=== PATIENT | female | born 1955 | race Hispanic/Latino ===

== ENCOUNTER 2017-06-20 06:18 | Day surgery (SDC) | payer MEDICAID ==
[~2017-06-20] VITALS: Ht 152.4 cm; Wt 60.8 kg
[2017-06-20] MEDS ORDERED: SODIUM CHLORIDE 0.9% 1000ML 1,000 ML IV ONE (06:24)
[2017-06-20 06:47] VITALS: BP 152/72
[2017-06-20] MEDS ORDERED: CALC1TAB3 PO (06:56)
[2017-06-20] MEDS ORDERED: CALC1TAB2 PO (06:56)
[2017-06-20] MEDS ORDERED: LUBI24CA2 PO (06:56)
[2017-06-20] MEDS ORDERED: ERGO500014 PO (06:56)
[2017-06-20] MEDS ORDERED: OMEP40CA37 PO (06:56)
[2017-06-20 07:59] VITALS: BP 126/66
[2017-06-20 08:05] VITALS: BP 127/66
[2017-06-20 08:10] VITALS: BP 133/68
[2017-06-20 08:15] VITALS: BP 134/88
== END 2017-06-20 08:33 | disposition home or self-care (01) ==
LOC: DAH 06:18
PROVIDERS: ATTEND Internal Medicine
DX: K29.50 Unspecified chronic gastritis without bleeding (principal); K31.7 Polyp of stomach and duodenum; K21.9 Gastro-esophageal reflux disease without esophagitis; K44.9 Diaphragmatic hernia without obstruction or gangrene; G30.9 Alzheimer's disease, unspecified; F02.80 Dementia in other diseases classified elsewhere, unspecified severity, without behavioral disturbance, psychotic disturbance, mood disturbance, and anxiety; F32.9 Major depressive disorder, single episode, unspecified; E78.5 Hyperlipidemia, unspecified; Z98.51 Tubal ligation status; Z83.3 Family history of diabetes mellitus; Z82.49 Family history of ischemic heart disease and other diseases of the circulatory system
CPT/HCPCS: 43239; 88305; 88313; 88342; A4606; J7030

== ENCOUNTER 2018-07-02 05:30 | Day surgery (SDC) | payer MEDICAID ==
[2018-07-01 10:51] VITALS: BP 126/56
[2018-07-01 10:56] LABS: BASOPHILS % (AUTO) 0.5 % (0.0-5.0); EOSINOPHILS % (AUTO) 0.5 % (0.0-8.0); HEMATOCRIT 41.7 % (36-48); LYMPHOCYTES % (AUTO) 31.5 % (21.0-51.0); MEAN CORPUSCULAR HEMOGLOBIN 30.5 pg (27.0-33.0); MEAN CORPUSCULAR HGB CONC 34.1 g/dL (32.0-36.0); MEAN CORPUSCULAR VOLUME 89.5 fL (79-99); NEUTROPHILS % (AUTO) 62.5 % (40.0-77.0); NUCLEATED RED BLOOD CELLS 0.1 % (0.0-0.19); PLATELET COUNT (AUTO) 301 K/uL (130-400); RED BLOOD CELL COUNT(AUTO) 4.66 MIL/uL (4.00-5.50); RED CELL DISTRIBUTION WIDTH 13.5 % (11.0-15.5); WHITE BLOOD COUNT (AUTO) 5.2 K/uL (4.8-10.8)
[~2018-07-02] VITALS: Ht 154.9 cm; Wt 60.3 kg
[2018-07-02] VITALS (16 sets, daily range): BP systolic 94–145; BP diastolic 39–78
[~2018-07-02 05:30] MED LIST: ERGO500014 PO; LINA145C PO; LUBI24CA2 PO
[2018-07-02] MEDS: LACTATED RINGERS 1000ML 1,000 ML IV SCH ×2 (06:40→08:20)
[2018-07-02] MEDS ORDERED: FENTANYL CITRATE PF 50 MCG/1 ML 2ML VIAL ONE (06:48)
[2018-07-02] MEDS ORDERED: PROPOFOL 10 MG/ML 20ML VIAL IV ONE (06:48)
[2018-07-02] MEDS ORDERED: LIDOCAINE PF 2% 5ML ABBOJECT ONE (06:48)
[2018-07-02] MEDS ORDERED: MIDAZOLAM HCL 1 MG/ML 2ML VIAL ONE (07:51)
== END 2018-07-02 10:35 | disposition home or self-care (01) ==
LOC: DAH 05:30
PROVIDERS: ATTEND Obstetrics & Gynecology
DX: N89.8 Other specified noninflammatory disorders of vagina (principal); E78.00 Pure hypercholesterolemia, unspecified; M06.9 Rheumatoid arthritis, unspecified; G30.9 Alzheimer's disease, unspecified; F02.80 Dementia in other diseases classified elsewhere, unspecified severity, without behavioral disturbance, psychotic disturbance, mood disturbance, and anxiety; Z90.710 Acquired absence of both cervix and uterus; Z83.3 Family history of diabetes mellitus; Z82.49 Family history of ischemic heart disease and other diseases of the circulatory system; Z98.890 Other specified postprocedural states; M19.90 Unspecified osteoarthritis, unspecified site
CPT/HCPCS: 36415; 57135; 85025; 86850; 86900; 86901; 88305; A4315; A4930; J2001; J2250; J2704; J3010; J7120 ×2

== ENCOUNTER → 2018-09-17 | Outpatient (CLI) | payer MEDICAID ==
[~2018-09-17] VITALS: Ht 152.4 cm; Wt 59.0 kg
[~2018-09-17] MED LIST changes: +REGADENOSON 0.4 MG/5 ML PF SYG IVP SCH
== END | disposition home or self-care (01) ==
LOC: SHCH 07:44
PROVIDERS: ATTEND Internal Medicine Cardiovascular Disease
DX: R07.9 Chest pain, unspecified (principal)
CPT/HCPCS: 78452; 93017; 96374; A9500 ×2; J2785

== ENCOUNTER → 2018-11-14 | Outpatient (CLI) | payer MEDICAID ==
[~2018-11-14] MED LIST changes: -REGADENOSON 0.4 MG/5 ML PF SYG IVP SCH
== END | disposition home or self-care (01) ==
LOC: RAH 14:14
PROVIDERS: ATTEND Family Medicine
DX: R42 Dizziness and giddiness (principal); G44.89 Other headache syndrome
CPT/HCPCS: 70551

== ENCOUNTER → 2022-11-02 | Outpatient (CLI) | payer OTHER | END | disposition home or self-care (01) | LOC: OIH 09:43 | PROVIDERS: ATTEND Internal Medicine Cardiovascular Disease | DX: Z13.6 Encounter for screening for cardiovascular disorders (principal); I25.10 Atherosclerotic heart disease of native coronary artery without angina pectoris | CPT/HCPCS: 75571 ==

== ENCOUNTER 2022-12-22 10:35 | Emergency (ER) | payer OTHER, MEDICARE ==
[~2022-12-22] VITALS: Ht 152.4 cm; Wt 52.2 kg
[2022-12-22 11:40] LABS: BASOPHILS # (AUTO) 0.03 K/uL (0.00-0.20); BASOPHILS % (AUTO) 0.7 % (0.0-5.0); EOSINOPHILS # (AUTO) 0.08 K/uL (0.00-0.70); EOSINOPHILS % (AUTO) 1.7 % (0.0-8.0); HEMATOCRIT 40.9 % (36-48); IMMATURE GRANULOCYTE ABSOLUTE 0.01 K/uL (0-1); LYMPHOCYTES # (AUTO) 2.1 K/uL (1.0-4.8); LYMPHOCYTES % (AUTO) 45.6 % (21.0-51.0); MEAN CORPUSCULAR HEMOGLOBIN 29.1 pg (27.0-33.0); MEAN CORPUSCULAR HGB CONC 31.5 g/dL (32.0-36.0); MEAN CORPUSCULAR VOLUME 92.3 fL (79-99); MONOCYTES # (AUTO) 0.3 K/uL (0.1-1.0); MONOCYTES % (AUTO) 7.4 % (3.0-13.0); NEUTROPHILS % (AUTO) 44.4 % (40.0-77.0); PLATELET COUNT (AUTO) 294 K/uL (130-400); RED BLOOD CELL COUNT(AUTO) 4.43 MIL/uL (4.00-5.50); RED CELL DISTRIBUTION WIDTH 13.3 % (11.0-15.5); WHITE BLOOD COUNT (AUTO) 4.6 K/uL (4.8-10.8)
[2022-12-22 11:56] LABS: ALBUMIN 3.7 g/dL (3.5-5.0); BILIRUBIN,TOTAL 0.4 mg/dL (0.2-1.0); CREATININE 0.6 mg/dL (0.5-1.5); TOTAL PROTEIN, SERUM 7.2 g/dL (6.0-8.3)
[2022-12-22 12:29] LABS: APPEARANCE,URINE CLEAR (CLEAR); BILIRUBIN,URINE NEGATIVE (NEGATIVE); COLOR,URINE LIGHT-YELLOW (YELLOW); GLUCOSE, URINE (UA) NEGATIVE (NEGATIVE); KETONES,URINE NEGATIVE (NEGATIVE); LEUKOCYTE ESTERASE ,URINE NEGATIVE Leu/uL (NEGATIVE); NITRATE,URINE NEGATIVE (NEGATIVE); OCCULT BLOOD,URINE NEGATIVE (NEGATIVE); PH,URINE 5.5 (5.0-8.0); PROTEIN,URINE NEGATIVE (NEGATIVE); UROBILINOGEN,URINE 0.2 mg/dL (0.2-1.0)
[2022-12-22 12:30] LABS: ADD UA MICROSCOPIC NO
[2022-12-22 15:14] VITALS: BP 138/64; PULSE 72; RESP 16; O2SAT 100
== END 2022-12-22 15:15 | disposition home or self-care (01) ==
LOC: EDH 10:35
DX: R07.89 Other chest pain (principal); M54.50 Low back pain, unspecified; R42 Dizziness and giddiness; R51.9 Headache, unspecified; E78.00 Pure hypercholesterolemia, unspecified
CPT/HCPCS: 36415; 71045; 80053; 81003; 84484; 85025; 93005

== ENCOUNTER → 2023-08-01 | Outpatient (CLI) | payer OTHER, MEDICARE | END | disposition home or self-care (01) | LOC: SHCH 08:00 | PROVIDERS: ATTEND Internal Medicine Cardiovascular Disease | DX: I87.1 Compression of vein (principal); I87.2 Venous insufficiency (chronic) (peripheral); I73.9 Peripheral vascular disease, unspecified | CPT/HCPCS: 93925; 93970 ==

== ENCOUNTER → 2024-04-29 | Outpatient (CLI) | payer MEDICARE ==
[2024-04-29 16:51] LABS: BASOPHILS # (AUTO) 0.03 K/uL (0.00-0.20); BASOPHILS % (AUTO) 0.6 % (0.0-5.0); EOSINOPHILS # (AUTO) 0.05 K/uL (0.00-0.70); HEMATOCRIT 40.6 % (36-48); IMMATURE GRANULOCYTE ABSOLUTE 0.01 K/uL (0-1); LYMPHOCYTES # (AUTO) 1.9 K/uL (1.0-4.8); LYMPHOCYTES % (AUTO) 38.6 % (21.0-51.0); MEAN CORPUSCULAR HEMOGLOBIN 29.6 pg (27.0-33.0); MEAN CORPUSCULAR VOLUME 92.5 fL (79-99); MONOCYTES # (AUTO) 0.4 K/uL (0.1-1.0); NEUTROPHILS # (AUTO) 2.5 K/uL (1.8-7.7); NEUTROPHILS % (AUTO) 51.6 % (40.0-77.0); PLATELET COUNT (AUTO) 297 K/uL (130-400); RED BLOOD CELL COUNT(AUTO) 4.39 MIL/uL (4.00-5.50); RED CELL DISTRIBUTION WIDTH 13.1 % (11.0-15.5); WHITE BLOOD COUNT (AUTO) 4.9 K/uL (4.8-10.8)
[2024-04-29 17:11] LABS: CREATININE 0.5 mg/dL (0.5-1.0); POTASSIUM 4.3 mmol/L (3.5-5.1)
== END | disposition home or self-care (01) ==
LOC: LAB 13:02
PROVIDERS: ATTEND Internal Medicine Cardiovascular Disease
DX: R50.9 Fever, unspecified (principal)
CPT/HCPCS: 36415; 80048; 85025

== ENCOUNTER 2024-08-08 09:13 | Emergency (ER) | payer MEDICARE ==
[~2024-08-08] VITALS: Ht 152.4 cm; Wt 47.6 kg
[~2024-08-08 09:13] MED LIST changes: -LUBI24CA2 PO; +LUBI24CA40 PO
--- NOTE | 2024-08-08 09:41 | ERN ---
General Chief Complaint: Insect Bite Stated Complaint: INSECT BITE Time Seen by MD: 09:15 History of Present Illness Initial Comments 69-year-old female, history of high cholesterol, who presents for a wound check. Patient was bitten on the right josue about a week ago by a bug. She reports a little bit of erythema to the area. She went to a other doctor and was discharged with doxycycline. She has been taking that. She wanted to make sure that the infection was not spreading. She denies any systemic illness. There is a approximately 0.5 cm ulceration with minimal surrounding erythema to the right josue. Allergies: Coded Allergies: No Known Drug Allergies (Verified Allergy, 05/01/13) Home Meds Reported Medications Linaclotide (Linzess) 145 Mcg Capsule, 145 MCG PO DAILY, CAP 07/01/18 Lubiprostone (Amitiza) 24 Mcg Capsule, 24 MCG PO DAILY, CAP 06/20/17 Ergocalciferol (Vitamin D2) (Vitamin D2) 50,000 Unit Capsule, 97628 UNIT PO EVERY OTHER DAY, CAP 06/20/17 Past Medical History Past Medical History: High Cholesterol, Other Medical History Other: GLAUCOMA Past Surgical History: Hysterectomy Social History Social History: Negative ROS Dictation CONSTITUTIONAL: No chills, no fever, no weakness, no diaphoresis, no malaise. HEAD/FACE: No signs of trauma. EENT: No eye pain, no blurred vision, no tearing, no double vision, no ear pain, no ear discharge, no nose pain, no nasal congestion, no throat pain, no throat swelling, no mouth pain. RESPIRATORY: No cough, no orthopnea, no SOB, no stridor, no wheezing. CARDIOVASCULAR: No chest pain, no edema, no palpitations, no syncope. GASTROINTESTINAL/ABDOMINAL: No abdominal pain, no constipation, no diarrhea, no nausea, no vomiting. GENITOURINARY: No abnormal discharge, no dysuria, no frequent urination, no hematuria. No complaints of pain in the genitals. MUSCULOSKELETAL: No back pain, no gout, no joint pain, no joint swelling, no muscle pain, no muscle stiffness, no neck pain. INTEGUMENTARY: No change in color, no change in hair/nails, no dryness, no lesion, no lumps, no rash. NEUROLOGICAL/PSYCH: No anxiety, not depressed, no emotional problem, no headache, no numbness, no pre-existing deficit, no history of seizures, no tremors, no weakness. HEMATOLOGIC/LYMPHATIC: Not anemic, no history of blood clots, no apparent bleeding, no bruising, glands not swollen. All Systems Negative, Except as Noted. Physical Exam Physical Exam Dictation VITAL SIGNS: Reviewed. GENERAL APPEARANCE: Alert, oriented x3, no acute distress, obese. HEAD AND FACE: Non-traumatic. EYES: PERRL, pink conjunctivas, eyelid no trauma, anterior chamber clear. EARS: Pinnas intact and no signs of trauma or erythema. Ear canals clear and no discharge. TMs no erythema. NOSE: No discharge, no bleeding. OROPHARYNX: Mouth normal, teeth no caries, tongue pink. Pharynx clear, no erythema. Tonsils no exudates, no abscesses noted. Mucous membrane moist. NECK: Supple, non-tender, no thyromegaly, no masses, no JVD, no bruits. BREAST: Deferred. CHEST: No tenderness, no crepitus, no paradoxical movement, no retractions. LUNGS: Clear, well-ventilated, symmetric, no rales, no wheezing, no rhonchi, no stridor, good breath sounds bilaterally. HEART: Regular rate, regular rhythm, no murmur, no gallops. VASCULAR: No peripheral edema. ABDOMEN: Soft, positive bowel sounds, nondistended, no guarding, nontender, no rebound, no masses no hepatomegaly, no splenomegaly, no Benton's sign, no hernias. RECTAL: Deferred. GENITAL: Deferred. NEUROLOGICAL: Normal speech, gross motor function intact, gross sensory func tion intact. MUSCULOSKELETAL: Neck nontender, full range of motion, back nontender, full range of motion. EXTREMITIES: Nontender, full range of motion. SKIN: Color pink, dry, no turgor, no rash, no lacerations, no abrasions, no contusions. LYMPHATICS: Deferred. MDM CC: Right josue pain Historian: Patient Comorbidities: None Limitations by social determinants of health: None Differential diagnosis: Bacterial infection, cellulitis, bug bite, hives, other. Vital signs are stable Clinical exam shows a very small ulceration with minimal erythema. Very low so she has been for any life threats. Patient was already taking doxycycline, or recommend she continues with the treatment. ED Course Vital Signs Date Time Temp Pulse Resp B/P (MAP) Pulse Ox O2 Delivery O2 Flow Rate FiO2 08/08/24 09:14 98.2 76 18 176/92 98 Room Air DX & DISP Disposition: Discharge Departure Impression: Primary Impression: Bug bite Condition: Stable Additional Instructions: The wound appears to be well healing. I recommend keeping it covered with a Band-Aid. Continue taking the doxycycline. Please follow up with your primary doctor in one week for re-evaluation. Return to the emergency department sooner if you have any concerns. Referrals: ÁNGEL BENZ (PCP) UGO DE JESUS DO Aug 08, 2024 09:41
[2024-08-08 10:00] VITALS: BP 169/88; PULSE 71; RESP 14; TEMP 98.2; O2SAT 98
== END 2024-08-08 10:27 | disposition home or self-care (01) ==
LOC: EDH 09:13
DX: S80.861A Insect bite (nonvenomous), right lower leg, initial encounter (principal); E78.00 Pure hypercholesterolemia, unspecified; Z90.710 Acquired absence of both cervix and uterus; W57.XXXA Bitten or stung by nonvenomous insect and other nonvenomous arthropods, initial encounter
CPT/HCPCS: 99281